=== PATIENT | female | born 1970 | race Hispanic/Latino ===

== ENCOUNTER → 2018-08-26 | Outpatient (CLI) | payer OTHER ==
[~2018-08-26] MED LIST: BUPROPION HCL100 MG PO; LOSARTAN-HCTZ1 EAC2 PO; RANITIDINE HCL300 MG PO
--- NOTE | 2018-08-27 08:32 | Diagnostic Imaging Report ---
#[id number] - USBRELIMRT ULTRASOUND OF THE RIGHT BREAST : 08/26/2018 No prior exams were available for comparison. Color flow and real-time ultrasound were performed on the right breast in the area where the patient has pain, the outer aspect. No cystic or solid mass is identified. IMPRESSION: NEGATIVE There is no sonographic evidence of malignancy. A 1 year screening mammogram is recommended. Gadiel Maloney Jr., D.O. cw/:08/26/2018 13:39:13 Psychological Operations Specialist: [facility], [facility] letter sent: Normal Exam Ultrasound BI-RADS: 1 Negative
== END ==
LOC: US 08:35
PROVIDERS: ATTEND Internal Medicine
DX: N63.10 Unspecified lump in the right breast, unspecified quadrant (principal)

== ENCOUNTER 2018-10-03 12:26 | Emergency (ER) | payer OTHER ==
[~2018-10-03] VITALS: Ht 157.5 cm; Wt 77.1 kg
--- OUTSIDE RECORDS SUMMARY | 2018-10-03 12:29 | XMS REPORT | Clinical Summary ---
Author Author ISMA [facility] Address Unknown Phone Unavailable Care Team Providers Care Filling Hauler Name Role Phone Destin Salvador PCP Allergies Comments Active Allergy Reactions Severity Noted Date Clarithromycin Shortness Of High 10/01/2017 Breath, Itching Medications End Date Status Medication Sig Dispensed Refills Start Date Active ranitidine (ZANTAC) 300 Take 300 mg 0 MG capsule by mouth every evening. Active BISOPROLOL FUMARATE ORAL Take 5 mg by 0 mouth daily. Active vitamin E 400 UNIT Take 400 0 capsule Units by mouth daily. Active iron, carbonyl (FEOSOL) Take 65 mg by 0 45 mg Tab tablet mouth daily. Active lactobacillus rhamnosus, Take 1 0 GG, (CULTURELLE) 10 capsule by billion cell capsule mouth daily. 10/14/2017 acetaminophen-codeine Take 1 tablet 15 tablet 0 (TYLENOL #3) 300-30 mg by mouth 8 per tablet every 4 (four) hours as needed for up to 10 days. Max Daily Amount: 6 tablets 2017 acetaminophen-codeine Take 1 tablet 30 tablet 0 (TYLENOL #4) 300-60 mg by mouth 8 per tablet every 4 (four) hours as needed for Pain for up to 10 days. Max Daily Amount: 6 tablets Active Problems Problem Noted Date Venous insufficiency 10/04/2017 Encounters Care Team Description Date Type Specialty Afshin Laguna MD 10/25/2017 Anesthesia Event Jamir Quick MD REMOVAL,VARICOSE VEIN 10/25/2017 Surgery Jamir Quick MD Venous insufficiency (Primary Dx) 10/25/2017 Hospital Encounter Jamir Quick MD REMOVAL,VARICOSE VEIN 10/04/2017 Surgery Bravo Santana MD 10/04/2017 Anesthesia Event Jamir Quick MD 10/04/2017 Hospital Encounter after 10/02/2017 Social History Date Tobacco Use Types Packs/Day Years Used Never Smoker Smokeless Tobacco: Never Used Alcohol Use Drinks/Week oz/Week Comments Yes rarely Sex Assigned at Date Recorded Not on file Industry Job Start Date Occupation Not on file Not on file Not on file Travel End Travel History Travel Start No recent travel history available. Last Filed Vital Signs Time Taken Vital Sign Reading 10/25/2017 10:25 AM CDT Blood Pressure 155/90 10/25/2017 10:25 AM CDT Pulse 64 10/25/2017 10:25 AM CDT Temperature 36.1 C (97 F) 10/25/2017 10:25 AM CDT Respiratory Rate 16 10/25/2017 10:25 AM CDT Oxygen Saturation 99% - Inhaled Oxygen - Concentration 10/25/2017 6:31 AM CDT Weight 78.6 kg (173 lb 4.8 oz) 10/25/2017 6:31 AM CDT Height 162.6 cm (5' 4") 10/25/2017 6:31 AM CDT Body Mass Index 29.75 Plan of Treatment Not on file Procedures Comments Procedure Name Priority Date/Time Associated Diagnosis ABLATION,ENDOVENOUS 10/25/2017 Venous insufficiency 7:30 AM CDT REMOVAL,VARICOSE VEIN 10/25/2017 Venous insufficiency 7:30 AM CDT POCT-HEMOGLOBIN METER Routine 10/25/2017 7:02 AM CDT HCG, QUANTITATIVE, STAT 10/25/2017 6:59 AM CDT ABLATION,ENDOVENOUS 10/04/2017 Venous insufficiency 9:12 AM CDT REMOVAL,VARICOSE VEIN 10/04/2017 Venous insufficiency 9:12 AM CDT POCT , URINE STAT 10/04/2017 7:00 AM CDT after 10/02/2017 Results * POC-Hemoglobin meter (10/25/2017 7:02 AM CDT) POC-Hemoglobin Meter 11.5 (L)Comment: TESTED AT 12.0 - 15.0 g/dL [facility] [address] [place] [id number] Specimen Blood Performing Organization Address City/State/Zipcode Phone Number [address] [phone] [facility] * hCG, quantitative, (10/25/2017 6:59 AM CDT) hCG Quant <1 0 - 10 mIU/mL [facility] Specimen Blood Narrative Performed At Non- Females: <10 mIU/mL [facility] Females: [facility] Gestation AgeReference Range(mIU/mL) 0.2-1 Week5-50 1-2 [id number] 2-3 Weeks 100-5,000 3-4 Weeks 500-10,000 4-5 Weeks 1,000-50,000 5-6 Weeks10,000-100,000 6-8 Weeks15,000-200,000 2-3 Months 10,000-100,000 Performing Organization Address City/State/Zipcode Phone Number [address] [phone] [facility] * POCT , urine (10/04/2017 7:00 AM CDT) Test Urine, POC Negative Control line present?, Yes POC Background clear?, POC Yes UPT Cassette Lot #, POC [id number] UPT Cassette Expiration 05/01/2019 Date, POC after 10/02/2017 Insurance Payer Benefit Subscriber ID Type Phone Address Plan / Group [employer] xxxxxxxxxx MARK[employer] E EXCHANGE Advance Directives For more information, please contact: [address] [address] Date Inactivated Comments Code Status Date Activated 10/25/2017 12:57 PM Full Code 10/25/2017 6:28 AM This code status was determined by: Patient 10/04/2017 2:01 PM Full Code 10/04/2017 7:03 AM This code status was determined by: Patient
--- OUTSIDE RECORDS SUMMARY | 2018-10-03 12:29 | XMS REPORT ---
Author Author [facility] Address Unknown Phone Unavailable Care Team Providers Care Drop Board Man Name Role Phone ALEIDA FELTON Unavailable Unavailable Mart MURPHY Unavailable Unavailable Problems This patient has no known problems. Allergies, Adverse Reactions, Alerts This patient has no known allergies or adverse reactions. Medications This patient has no known medications. Results Test Description Test Time Test Comments Text Results Atomic Results Result Comments US BREAST LIMITED RIGHT 2018-08-26 11:47:00 [place] [address] Patient Name: GRACIE ACHARYA MR #: [id number] : 1970 Age/Sex: 47/F Req #: [id number] Adm Physician: Ordered by: ELBA MURPHY MD Report #: [id number] Location: US Room/Bed: Procedure: [id number] US/US BREAST LIMITED RIGHT Exam Date: Exam Time: REPORT STATUS: Signed #[id number] - USBRELIMRT ULTRASOUND OF THE RIGHT [facility] : 08/26/2018 No prior exams were available for comparison. Color flow and real-time ultrasound were performed on the right breast in the area where the patient has pain, the outer aspect. No cystic or solid mass is identified. IMPRESSION: NEGATIVE There is no sonographic evidence of malignancy. A 1 year screening mammogram is recommended. Fabio Maloney Jr., D.O. cw/:08/26/2018 13:39:13 Lobby Porter: [facility], [facility] letter sent: Normal Exam Ultrasound BI-RADS: 1 Negative Dictated By: FABIO MALONEY DO 2131 Transcribed By: ANGELA on 08/26/18 1335 COPY TO: ELBA MURPHY MD HCG, QUANTITATIVE, 2017-10-25 07:30:00 GONADOTROPIN, CHORIONIC (HCG) QUANT (BEAKER) (test uvdy=779) < mIU/mL 0-10 Non- Females: <10 mIU/mL Females: Gestation Age Reference Range(mIU/mL) 0.2-1 Week 5-50 1-2 Weeks 50-500 2-3 Weeks 100-5,000 3-4 Weeks 500-10,000 4-5 Weeks 1,000-50,000 5-6 Weeks 10,000-100,000 6-8 Weeks 15,000-200,000 2-3 Months 10,000-100,000 POCT-HEMOGLOBIN METER 2017-10-25 07:04:00* Test Item Value Reference Range Comments POC-HEMOGLOBIN METER (BEAKER) (test plff=6529) 11.5 g/dL 12.0-15.[address] [address] [id number] 11:17:00* Test Item Value Reference Range Comments SODIUM (BEAKER) (test fdwc=227) 140 meq/L 136-145 POTASSIUM (BEAKER) (test tqyp=990) 3.7 meq/L 3.5-5.1 CHLORIDE (BEAKER) (test qtyr=253) 106 meq/L 98-107 CO2 (BEAKER) (test rmhw=217) 27 meq/L 22-29 BUN AND [id number] 11:17:00* Test Item Value Reference Range Comments BLOOD UREA NITROGEN (BEAKER) (test hequ=939) 9 mg/dL 7-21 CREATININE (BEAKER) (test mfok=848) 0.64 mg/dL 0.57-1.25 EGFR (BEAKER) (test ycxk=9467) 99 mL/min/1.73 sq m ESTIMATED GFR IS NOT ACCURATE CREATININE CLEARANCE IN PREDICTING GLOMERULAR FILTRATION RATE. ESTIMATED GFR IS NOT APPLICABLE FOR DIALYSIS PATIENTS. [id number] 10:46:00* Test Item Value Reference Range Comments HEMOGLOBIN (MELE) (test tobn=566) 12.9 GM/DL 11.2-15.7
--- NOTE | 2018-10-03 13:00 | NUR ---
Ottoniel SEWELL at bedside.
[2018-10-03] MEDS ORDERED: KETOROLAC TROMETHAMINE 30 MG/ML VIAL IV STA (13:12)
[2018-10-03] MEDS ORDERED: DEXAMETHASONE SOD PHOS 10 MG/1 ML VIAL IV ONE (13:15)
[2018-10-03] MEDS ORDERED: DIPHENHYDRAMINE HCL INJ 50 MG/ML VIAL IV ONE (13:15)
[2018-10-03] MEDS ORDERED: SODIUM CHLORIDE 0.9% 1000ML 1,000 ML IV SCH (13:15)
[2018-10-03] MEDS ORDERED: METOCLOPRAMIDE HCL 10 MG/2ML VIAL IV ONE (13:15)
[2018-10-03] MEDS ORDERED: ZEBETA10 MG PO (13:27)
[2018-10-03] MEDS ORDERED: RANITIDINE HCL300 M1 PO (13:27)
[2018-10-03] MEDS ORDERED: BISOPROLOL FUMAR5 MG PO (13:29)
--- NOTE | 2018-10-03 13:55 | NUR ---
Room is darkened to help with decreased stimuli, pt is placed into a position of comfort.
--- NOTE | 2018-10-03 15:21 | Diagnostic Imaging Report ---
Examination: CT head without contrast Clinical Indication: Headache. Technique: Transaxial noncontrast images from the skull base through the vertex were obtained. Sagittal and coronal reformatted images were done. Dose modulation, iterative reconstruction, and/or weight based adjustment of the mA/kV was utilized to reduce the radiation dose to as low as reasonably achievable. Comparison: None. Findings: Scalp: No abnormalities. Bones: Intact. No fractures. No blastic or lytic lesions. Brain sulci: Appropriate for patient's age. Ventricles: Normal in size and configuration. No hydrocephalus. Extra-axial space: No abnormalities. Parenchyma: No abnormal densities. No masses, hemorrhage, or acute or chronic cortical based vascular insults. Suprasellar region: No abnormalities. Craniocervical junction: The foramen magnum is patent. No Chiari one malformation. Impression: No intracranial abnormality. Signed by: Dr. Lise Rojas M.D. on 10/03/2018 3:17 PM
[2018-10-03 15:50] VITALS: BP 138/87
== END 2018-10-03 15:56 | disposition home or self-care (01) ==
LOC: ER 12:26
DX: G44.89 Other headache syndrome (principal); G43.909 Migraine, unspecified, not intractable, without status migrainosus; I10 Essential (primary) hypertension; K21.9 Gastro-esophageal reflux disease without esophagitis
CPT/HCPCS: 70450; 99284; J1100; J1200; J1885; J2765; J7030

== ENCOUNTER 2018-10-18 05:25 | Observation (INO) | payer OTHER ==
[~2018-10-18] VITALS: Ht 162.6 cm; Wt 73.0 kg
[~2018-10-18 05:25] MED LIST changes: +BISOPROLOL FUMAR5 MG PO; +RANITIDINE HCL300 M1 PO; +ZEBETA10 MG PO
--- OUTSIDE RECORDS SUMMARY | 2018-10-18 05:28 | XMS REPORT | Clinical Summary ---
Author Author ISMA [facility] Address Unknown Phone Unavailable Care Team Providers Care Extrusion Die Repair Manager Name Role Phone Destin Salvador PCP Allergies [...] capsule by billion cell capsule mouth daily. 2017 acetaminophen-codeine Take 1 tablet 30 tablet [...] Venous insufficiency (Primary Dx) 10/25/2017 Hospital Encounter after 10/17/2017 Social History Date Tobacco Use Types Packs/Day [...] HCG, QUANTITATIVE, STAT 10/25/2017 6:59 AM CDT after 10/17/2017 Results * POC-Hemoglobin meter (10/25/2017 7:02 AM CDT) POC-Hemoglobin Meter 11.5 (L)Comment: TESTED AT 12.0 - 15.0 g/dL [facility] [place] [place] [address] [facility] [address] Specimen Blood Performing Organization Address City/State/Zipcode Phone Number [address] [address] [facility] * hCG, quantitative, (10/25/2017 6:59 AM CDT) hCG Quant <1 0 - 10 mIU/mL [facility] Specimen Blood Narrative Performed At Non- Females: <10 mIU/mL [facility] Females: [facility] Gestation AgeReference Range(mIU/mL) 0.2-1 Week5-50 1-2 [id number] 2-3 Weeks 100-5,000 3-4 Weeks 500-10,000 4-5 Weeks 1,000-50,000 5-6 Weeks10,000-100,000 6-8 Weeks15,000-200,000 2-3 Months 10,000-100,000 Performing Organization Address City/State/Zipcode Phone Number [facility] [address] [place], [place] [phone] [facility] after 10/17/2017 Insurance Payer Benefit Subscriber ID Type Phone Address Plan / Group [employer] xxxxxxxxxx [employer] E EXCHANGE Advance Directives For more information, please contact: [address] [address] Date Inactivated Comments Code Status Date Activated 10/25/2017 12:57 PM Full Code 10/25/2017 6:28 AM This code status was determined by: Patient 10/04/2017 2:01 PM Full Code 10/04/2017 7:03 AM This code status was determined by: Patient
[2018-10-18] MEDS ORDERED: ASPIRIN 81 MG CHEW TAB PO ONE ×2 (05:45→07:00)
[2018-10-18 05:56] LABS: BASOPHILS % 0.6 % (0.0-1.0); EOSINOPHILS # (AUTO) 0.1 (0.0-0.4); EOSINOPHILS % 1.3 % (0.0-6.0); HEMATOCRIT 36.7 % (34.2-44.1); HEMOGLOBIN 12.6 g/dL (12.0-16.0); LYMPHOCYTES # (AUTO) 1.9 (1.0-3.2); LYMPHOCYTES % 29.9 % (18.0-39.1); MEAN CORPUSCULAR HEMOGLOBIN 31.6 pg (28-32); MEAN CORPUSCULAR HGB CONC 34.3 g/dL (31-35); MONOCYTES # (AUTO) 0.4 (0.2-0.8); MONOCYTES % 6.8 % (4.4-11.3); NEUTROPHILS # (AUTO) 3.9 (2.1-6.9); NEUTROPHILS % 61.2 % (38.7-80.0); PLATELET COUNT 222 x10e3/uL (140-360); RED BLOOD COUNT 3.99 x10e6/uL (3.6-5.1); RED CELL DISTRIBUTION WIDTH 11.7 % (11.7-14.4)
--- NOTE | 2018-10-18 06:31 | Diagnostic Imaging Report ---
EXAMINATION: CHEST SINGLE (PORTABLE) COMPARISON: None INDICATION: Chest pain ^chest pain ^[id number] ^0555 ^Y DISCUSSION: Frontal view of the chest obtained at 0601 hours. HEART AND MEDIASTINUM: The cardiomediastinal silhouette is unremarkable. LINES: None. LUNGS: The lungs are well inflated and clear. No pneumonia or pulmonary edema. PLEURA: No pleural effusion or pneumothorax. BONES AND SOFT TISSUES: No focal osseous lesion. The soft tissues are normal. IMPRESSION: No acute cardiopulmonary disease. Signed by: Dr. Jerry Wells MD on 10/18/2018 6:28 AM
[2018-10-18 06:44] LABS: ALANINE AMINOTRANSFERASE 15 IU/L (0-55); ALBUMIN 3.8 g/dL (3.5-5.0); ALBUMIN/GLOBULIN RATIO 1.1 (0.8-2.0); ALKALINE PHOSPHATASE 77 IU/L (40-150); ANION GAP 16.9 mmol/L (8-16); BLOOD UREA NITROGEN 11 mg/dL (7-26); BUN/CREATININE RATIO 15 (6-25); CALCIUM 9.9 mg/dL (8.4-10.2); CARBON DIOXIDE 24 mmol/L (22-29); CHLORIDE 109 mmol/L (98-107); CREATINE KINASE 51 IU/L (29-168); CREATININE, SERUM 0.75 mg/dL (0.57-1.11); EST GLOMERULAR FILTRATION RATE > 60 ML/MIN (60-); GLUCOSE 107 mg/dL (74-118); POTASSIUM 3.9 mmol/L (3.5-5.1); SODIUM 146 mmol/L (136-145)
[2018-10-18] MEDS ORDERED: ONDANSETRON HCL INJ 2MG/ML 2ML 2 MG/ML VIAL IV PRN (07:00)
[2018-10-18] MEDS ORDERED: SODIUM CHLORIDE FLUSH 10 ML SYR INJ PRN (07:00)
[2018-10-18] MEDS ORDERED: NITROGLYCERIN 0.4 MG SUBL SL PRN (07:00)
--- NOTE | 2018-10-18 07:03 | NUR ---
ASSUMED CARE AT THIS TIME. PATIENT LAYING IN BED WITH EYES CLOSED,EASILY ARROUSABLE TO VERBAL STIMULI. RESP EVEN AND UNLABORED. SKIN WARM AND DRY. NO SIGNS OF ACUTE DISTRESS NOTED AT THIS TIME. EDUCATED PATIENT AND FAMILY ON THE CURRENT PLAN OF CARE,VERBALIZED UNDERSTANDING. DENIES ANY C/O AT THIS TIME.
--- NOTE | 2018-10-18 07:03 | NUR ---
REPORT GIVEN TO KRISHNA MORGAN DAY SHIFT NURSE.
--- OUTSIDE RECORDS SUMMARY | 2018-10-18 07:07 | XMS REPORT | Clinical Summary ---
Author Author ISMA [facility] Address Unknown Phone Unavailable Care Team Providers Care Net Developer Consultant Name Role Phone Destin Salvador PCP Allergies [...] (L)Comment: TESTED AT 12.0 - 15.0 g/dL [facility] [address] [facility] [address] Specimen Blood Performing Organization Address City/State/Zipcode Phone Number [address] [address] [facility] * hCG, quantitative, (10/25/2017 6:59 AM CDT) hCG Quant <1 0 - 10 mIU/mL [facility] Specimen Blood Narrative Performed At Non- Females: <10 mIU/mL [facility] Females: [facility] Gestation AgeReference Range(mIU/mL) 0.2-1 Week5-50 1-2 [id number] 2-3 Weeks 100-5,000 3-4 Weeks 500-10,000 4-5 Weeks 1,000-50,000 5-6 Weeks10,000-100,000 6-8 Weeks15,000-200,000 2-3 Months 10,000-100,000 Performing Organization Address City/State/Zipcode Phone Number [facility] [address] [place], [place] [phone] [facility] after 10/17/2017 Insurance Payer Benefit Subscriber ID Type Phone Address Plan / Group [employer] xxxxxxxxxx [employer] EXCHANGE Advance Directives For more information, please contact: [address] [address] Date Inactivated Comments Code Status Date Activated 10/25/2017 12:57 PM Full Code 10/25/2017 6:28 AM This code status was determined by: Patient 10/04/2017 2:01 PM Full Code 10/04/2017 7:03 AM This code status was determined by: Patient
--- NOTE | 2018-10-18 08:10 | NUR ---
ULTRASOUND AT BEDSIDE FOR ECHO
[2018-10-18] MEDS: FAMOTIDINE 20 MG/2 ML VIAL IV SCH ×2 (08:19→19:12)
[2018-10-18] MEDS ORDERED: BUTALBIT-ACETA1 EACH PO (08:57)
[2018-10-18] MEDS ORDERED: MELOXICAM7.5 MG PO (08:57)
[2018-10-18] MEDS ORDERED: ASPIRIN 81 MG ENTERIC COATED PO SCH (09:00)
--- NOTE | 2018-10-18 10:16 | NUR ---
TELEMETRY BOX APPLIED. NO SIGNS OF ACUTE DISTRESS NOTED AT THIS TIME.
[2018-10-18 10:45] VITALS: BP 154/84
[2018-10-18 11:31] VITALS: BP 154/84
[2018-10-18 11:38] VITALS: BP 154/84
--- NOTE | 2018-10-18 12:18 | NUR ---
Dictated Dictation system cut off at 'plan' section No dictation ID available
--- NOTE | 2018-10-18 16:36 | Consultation ---
DATE OF CONSULTATION: 10/18/2018 Cardiology consultation. REQUESTING PHYSICIAN: Edward Anaya MD. REASON FOR CONSULTATION: Chest pain. HISTORY OF PRESENT ILLNESS: This is a 47-year-old woman with history of hypertension, hyperlipidemia, and hypothyroidism, who presents with complaints of chest pain. She describes the pain as a pulling sensation 8/10 in severity. She stated the pain occurred two times each lasting seconds and were followed by heaviness in the left arm. She denies any shortness of breath or nausea or diaphoresis associated with the pain. REVIEW OF SYSTEMS: Negative except as per HPI. PAST MEDICAL HISTORY: 1. Hypertension. 2. Hyperlipidemia. 3. Hypothyroidism. PAST SURGICAL HISTORY: 1. section. 2. Cholecystectomy. 3. Hysterectomy. 4. Vein procedure. ALLERGIES: PLEASE SEE EMR. MEDICATIONS: Please see medication list. SOCIAL HISTORY: Denies tobacco, alcohol or illicit drugs. FAMILY HISTORY: Denies family history of heart disease. PHYSICAL EXAMINATION: VITAL SIGNS: Temperature 97.6 degrees, pulse 56, respiratory rate 16, blood pressure 145/85, oxygen saturation 100%. GENERAL: Awake, alert, in no acute distress. Well-developed, well-nourished woman. HEENT: Normocephalic, atraumatic. Pupils equal. No scleral icterus. NECK: Supple. No thyromegaly or cervical lymphadenopathy. No carotid bruits. LUNGS: Clear to auscultation bilaterally. No wheezes or crackles. CARDIOVASCULAR: Normal rate. Regular rhythm. No murmur. Normal S1, S2. ABDOMEN: Soft, nontender. EXTREMITIES: No edema. NEUROLOGIC: Nonfocal exam. LABORATORY DATA: WBC 6.29, hemoglobin 12.6, hematocrit 36.7, platelets 222. Sodium 146, potassium 3.9, chloride 109, CO2 of 24, BUN 11, creatinine 0.75. Troponin 0.003. Chest x-ray; no acute cardiopulmonary disease. Chest x-ray; sinus bradycardia, otherwise normal ECG. IMPRESSION: 1. Chest pain. 2. Hypertension. 3. Hyperlipidemia. 4. Hypothyroidism. RECOMMENDATIONS: Trend cardiac enzymes to rule out myocardial infarction. Echocardiogram has been done. We will review the images once available. Obtain fasting lipid panel. Given risk factors, we will proceed with nuclear stress test to evaluate for ischemia, resume home cardiac medications specifically for sotalol for patient's hypertension. Further recommendations pending test results. Thank you for this consult. We will continue to follow. MD DEIRDRE Gary/LOIL /[id number]
[2018-10-18 16:50] LABS: CREATINE KINASE MB 0.4 ng/mL (0-5.0)
[2018-10-18 19:29] VITALS: BP 143/77
[2018-10-18 19:43] VITALS: BP 143/77
--- NOTE | 2018-10-21 10:34 | NUR ---
DISCHARGE SUMMARY [id number]
--- NOTE | 2018-10-21 13:39 | Myoview Stress Test ---
DATE OF STUDY: 10/18/2018 09:40:00 Stress Test - Treadmill ONLY ACCESSION NUMBER: [id number] PROCEDURE TITLE: Rest/stress single isotope SPECT imaging with exercise stress and gated SPECT imaging. INDICATION: Chest pain. PROCEDURE: The patient performed treadmill exercise using a Huan protocol, exercising for 9 minutes and 33 seconds to stage IV and completing estimated workload of 10.1 metabolic equivalents (METs). The test was terminated due to target heart rate achieved. The heart rate was 72 beats per minute at rest, increased to 152 beats per minute at peak exercise, which is 89% of the maximum predicted heart rate. The rest blood pressure was 128/88 and increased to 162/103, which is a normal response. The resting electrocardiogram demonstrated normal sinus rhythm. There is no ST-segment changes suggestive of myocardial ischemia. Myocardial perfusion imaging was performed at rest following the injection of 11 mCi of tetrofosmin. At peak exercise, the patient was injected with 30 mCi of tetrofosmin. Exercise was continued for 1 minute. Gated post-stress tomographic imaging was performed. FINDINGS: The overall quality of the study is fair. Left ventricle is normal size on the rest and stress studies. SPECT images demonstrate homogeneous tracer distribution throughout the myocardium. Gated SPECT imaging reveals normal myocardial thickening and wall motion. The left ventricular ejection fraction was calculated to be 54%. IMPRESSION: Myocardial perfusion imaging is normal. Overall, left ventricular systolic function was normal without regional wall motion abnormalities. Manuela Emerson MD ABS/MODL /[id number]
--- NOTE | 2018-10-21 14:14 | History and Physical ---
PRIMARY CARE DOCTOR: Destin Salvador MD CHIEF COMPLAINT: Chest pain. HISTORY OF PRESENT ILLNESS: Ms. Alberts is a pleasant 47-year-old female with chest pain history. It began 1 year ago. She has a different kind of GERD pain that is mild in different parts of her body. This is left-sided, pressure. Radiates a little bit to the left upper extremity. Episodes occur transiently, but originally were mild in intensity. They are starting to get more strong and bothersome. Last week, she presented to her primary care doctor for evaluation, but this time she came to the hospital given worsening. EKG reportedly has no acute process, but I do not see the tracing in the chart right now. PAST MEDICAL HISTORY: Hyperlipidemia, hypertension, migraines, GERD, hypothyroid state, , cholecystectomy, hysterectomy. MEDICATIONS: Medication list reviewed per electronic record. ALLERGIES: CLARITHROMYCIN. SOCIAL HISTORY: No smoking. No drinking. No drugs. FAMILY HISTORY: Noncontributory to this. REVIEW OF SYSTEMS: GENERAL: No weight changes. OPHTHALMOLOGIC: No double vision. ENT: No mouth ulcers. ENDOCRINE: Thyroid reportedly recently in control. PULMONARY: No asthma. CARDIAC: No heart attacks in the past. GI: No constipation. : No bloody urine. NEUROLOGIC: No seizures. DERMATOLOGIC: No rashes. PSYCHIATRIC: No depression. OBJECTIVE: VITAL SIGNS: Afebrile, vital signs noted per the chart record. GENERAL: In no acute distress, alert and calm. HEENT: Normocephalic, atraumatic. NECK: Supple. Throat midline. LUNGS: Bilateral air entry, clear. CARDIOVASCULAR: S1, S2. No murmurs, rubs, or gallops. ABDOMEN: Soft, nontender. EXTREMITIES: No clubbing. No cyanosis. There is no edema. INTEGUMENT: No rash. No purpura. LABORATORY DATA: A 3.9 potassium, 0.75 creatinine. 6.2 white count, 37 hematocrit, 222 platelets. Chest x-ray, clear lungs. IMPRESSION AND PLAN: 1. Worsening chest pains, not otherwise specified. Treat for acute coronary syndrome. 2. Hypertension. 3. Hyperlipidemia. 4. Reported gastroesophageal reflux disease. 5. Hypothyroid state. MD LIOR Joseph/LOIL /[id number]
--- NOTE | 2018-10-21 17:01 | Discharge Summary ---
PRIMARY CARE DOCTOR: Destin Salvador MD PRIMARY DIAGNOSIS: Chest pain, possible acute coronary syndrome. SECONDARY DIAGNOSES: 1. Chest pain, less likely acute coronary syndrome. 2. Hypertension. 3. Hyperlipidemia. 4. Hypothyroidism. 5. Gastroesophageal reflux disease. HOSPITAL COURSE: The patient presented to emergency room after having chest pains, which have been worsening over the last two months. In the emergency room, initial cardiac enzyme screening was negative. EKG was unremarkable for ischemia. However, due to certain risks factors including first-time presentation, she was admitted. She was ruled out for a myocardial infarction as inpatient in observation. The patient was taken for stress test by Dr. Emerson and stress test result was unremarkable. The patient also had echocardiogram done showing 55%-60% LVEF without any gross structural abnormalities that were significant. Thereafter, the patient was allowed to discharge for outpatient followup. ACTIVITY: As tolerated. DIET: Cardiac, low-salt diet. MEDICATIONS ON DISCHARGE: Please see discharge medication record for details. FOLLOWUP: With Dr. Salvador in 1-[address] Emerson in 3-4 weeks. Greater than 30 minutes in coordinating care, multiple evaluation on this day for discharge. MD LIOR Joseph/CAESAR /[id number]
== END 2018-10-18 20:44 | disposition home or self-care (01) ==
LOC: ER 05:25 → ERHOLD 07:05 → IMCU 10:08
PROVIDERS: ADMIT Internal Medicine Critical Care Medicine; ATTEND Internal Medicine Critical Care Medicine
DX: R07.89 Other chest pain (principal); I10 Essential (primary) hypertension; E03.9 Hypothyroidism, unspecified; K21.9 Gastro-esophageal reflux disease without esophagitis; K29.70 Gastritis, unspecified, without bleeding; E78.5 Hyperlipidemia, unspecified; G43.909 Migraine, unspecified, not intractable, without status migrainosus; Z82.49 Family history of ischemic heart disease and other diseases of the circulatory system; Z88.8 Allergy status to other drugs, medicaments and biological substances
CPT/HCPCS: 36415; 71045; 78452; 80053; 80061; 82550; 82553; 84484; 84702; 85025; 93005; 93017; 93306; 99284; A9502; G0378

== ENCOUNTER 2019-08-25 07:54 | Emergency (ER) | payer OTHER ==
[~2019-08-25] VITALS: Ht 162.6 cm; Wt 77.6 kg
[~2019-08-25 07:54] MED LIST changes: +BUTALBIT-ACETA1 EACH PO; +MELOXICAM7.5 MG PO
[2019-08-25] MEDS ORDERED: TOPAMAX25 MG PO (08:00)
[2019-08-25] MEDS ORDERED: KETOROLAC TROMETHAMINE 60 MG/2 ML VIAL IM ONE (08:00)
[2019-08-25] MEDS ORDERED: DIAZEPAM 5 MG TAB PO ONE (08:00)
--- NOTE | 2019-08-25 08:22 | NUR ---
Patient medicated for pain. Patient currently in CT scan.
--- NOTE | 2019-08-25 09:05 | Diagnostic Imaging Report ---
CT BRAIN WO HISTORY: Headache COMPARISON: Head CT 10/03/2018 TECHNIQUE: Noncontrast axial scans were obtained from skull base to the vertex. Coronal and sagittal reconstructions obtained from the axial data. One or more of the following dose reduction techniques were used: Automated exposure control, adjustment of the mA and/or kV according to patient size, and/or utilization of iterative reconstruction technique. DISCUSSION: Scalp/Skull: Unremarkable. Brain sulci: Appropriate for patient's age. Ventricles: Normal in size and configuration. No hydrocephalus. Extra-axial spaces: No masses or fluid collections. Parenchyma: No abnormal densities. No mass, hemorrhage, or large vascular territory acute infarct. Dural sinuses: No abnormal densities. Sellar/Suprasellar region: Intact. Skull base: Intact. Incidental findings: None. IMPRESSION: No intracranial abnormalities. Signed by: Dr. Giuseppe Sifuentes M.D. on 08/25/2019 9:02 AM
[2019-08-25 09:28] VITALS: BP 135/92
== END 2019-08-25 09:46 | disposition home or self-care (01) ==
LOC: ER 07:54
DX: G44.211 Episodic tension-type headache, intractable (principal)
CPT/HCPCS: 70450; 99283; J1885

== ENCOUNTER 2019-12-20 08:46 | Emergency (ER) | payer OTHER ==
[~2019-12-20] VITALS: Ht 162.6 cm; Wt 77.6 kg
[~2019-12-20 08:46] MED LIST changes: +TOPAMAX25 MG PO
[2019-12-20] MEDS ORDERED: FAMOTIDINE 20 MG/2 ML VIAL IV STA (08:56)
[2019-12-20] MEDS ORDERED: PANTOPRAZOLE 40 MG 10ML VIAL IV STA (08:56)
[2019-12-20 09:10] LABS: BASOPHILS % 0.6 % (0.0-1.0); EOSINOPHILS # (AUTO) 0.1 (0.0-0.4); EOSINOPHILS % 1.1 % (0.0-6.0); HEMATOCRIT 41.3 % (34.2-44.1); HEMOGLOBIN 14.1 g/dL (12.0-16.0); LYMPHOCYTES # (AUTO) 1.7 (1.0-3.2); LYMPHOCYTES % 26.8 % (18.0-39.1); MEAN CORPUSCULAR HEMOGLOBIN 30.7 pg (28-32); MEAN CORPUSCULAR HGB CONC 34.1 g/dL (31-35); MEAN CORPUSCULAR VOLUME 89.8 fL (81-99); MONOCYTES # (AUTO) 0.5 (0.2-0.8); MONOCYTES % 8.1 % (4.4-11.3); NEUTROPHILS % 63.1 % (38.7-80.0); PLATELET COUNT 226 x10e3/uL (140-360); RED CELL DISTRIBUTION WIDTH 11.7 % (11.7-14.4)
--- NOTE | 2019-12-20 09:11 | Emergency Department Note ---
History of Present Illnes History of Present Illness Chief Complaint: Abdominal Complaints History of Present Illness This is a 49 year old female arrives to the ED epigastric abdominal pain. Patient states she's had this pain on and off for several months. Patient states pain is localized epigastric region worse after eating. Patient states she was diagnosed with gastritis and is taking Bentyl with minimal relief. Patient had a recent ultrasound that was unremarkable. Patient is looking to get find out if she has an ulcer. Historian: Patient Arrival Mode: Car National [employer] Officer Required: No Onset (how long ago): month(s) Onset quality: gradual Duration (how long): month(s) Progression: waxing and waning Chronicity: recurrent Exacerbating factors: eating Treatments prior to arrival: none Past Medical/Family History Physician Review I have reviewed the patient's past medical and family history. Any updates have been documented here. Past Medical History Recent Fever: No Clinical Suspicion of Infectio: No New/Unexplained Change in Ment: No Past Medical History: Hypertension, Migraines, GERD Other Medical History: gall stones Past Surgical History: Tubal Ligation, Social History Smoking Cessation: Never Smoker Counseling Performed: No Family History Family history of heart diseas: No Other Last Tetanus: OOD Review of Systems Review of Systems Constitutional: Reports no symptoms EENTM: Reports no symptoms Cardiovascular: Reports no symptoms Respiratory: Reports no symptoms Gastrointestinal: Reports as per HPI, Reports abdominal pain, Reports nausea; Denies constipation, Denies diarrhea, Denies vomiting Genitourinary: Reports no symptoms Musculoskeletal: Reports no symptoms Integumentary: Reports no symptoms Neurological: Reports no symptoms Psychological: Reports no symptoms Endocrine: Reports no symptoms Hematological/Lymphatic: Reports no symptoms Physical Exam Related Data Allergies: Coded Allergies: clarithromycin (Verified Allergy, Mild, ITCHING, 12/20/19) Triage Vital Signs Vital Signs Date Time Temp Pulse Resp B/P (MAP) Pulse Ox O2 Delivery O2 Flow Rate FiO2 12/20/19 08:48 96.6 61 18 163/104 99 Vital signs reviewed: Yes Physical Exam CONSTITUTIONAL Constitutional: Present well-developed, Present obese HENT HENT: Present normocephalic, Present atraumatic, Present oropharynx clear/moist, Present nose normal HENT L/R: Present left ext ear normal, Present right ext ear normal EYES Eyes: Reports PERRL, Reports conjunctivae normal NECK Neck: Present ROM normal PULMONARY Pulmonary: Present effort normal, Present breath sounds normal CARDIOVASCULAR Cardiovascular: Present regular rhythm, Present heart sounds normal, Present capillary refill normal, Present normal rate GASTROINTESTINAL Abdominal: Present soft, Present bowel sounds normal, Present tender (abdomen relatively soft, mild epigastric tenderness noted) GENITOURINARY Genitourinary: Present exam deferred SKIN Skin: Present warm, Present dry MUSCULOSKELETAL Musculoskeletal: Present ROM normal NEUROLOGICAL Neurological: Present alert, Present oriented x 3, Present no gross motor or sensory deficits PSYCHOLOGICAL Psychological: Present mood/affect normal, Present judgement normal Results Laboratory Lab results reviewed: Yes Laboratory comments Laboratory Tests Test 12/20/19 08:55 White Blood Count 6.30 x10e3/uL (4.8-10.8) Red Blood Count 4.60 x10e6/uL (3.6-5.1) Hemoglobin 14.1 g/dL (12.0-16.0) Hematocrit 41.3 % (34.2-44.1) Mean Corpuscular Volume 89.8 fL (81-99) Mean Corpuscular Hemoglobin 30.7 pg (28-32) Mean Corpuscular Hemoglobin Concent 34.1 g/dL (31-35) Red Cell Distribution Width 11.7 % (11.7-14.4) Platelet Count 226 x10e3/uL (140-360) Neutrophils (%) (Auto) 63.1 % (38.7-80.0) Lymphocytes (%) (Auto) 26.8 % (18.0-39.1) Monocytes (%) (Auto) 8.1 % (4.4-11.3) Eosinophils (%) (Auto) 1.1 % (0.0-6.0) Basophils (%) (Auto) 0.6 % (0.0-1.0) Neutrophils # (Auto) 4.0 (2.1-6.9) Lymphocytes # (Auto) 1.7 (1.0-3.2) Monocytes # (Auto) 0.5 (0.2-0.8) Eosinophils # (Auto) 0.1 (0.0-0.4) Basophils # (Auto) 0.0 (0.0-0.1) Absolute Immature Granulocyte (auto 0.02 x10e3/uL (0-0.1) Urine Color Yellow (YELLOW) Urine Clarity Sl cloudy (CLEAR) Urine pH 6 (5 - 7) Urine Specific [place] 1.025 (1.010-1.025) Urine Protein Trace (NEGATIVE) Urine Glucose (UA) Negative (NEGATIVE) Urine Ketones Negative (NEGATIVE) Urine Blood Trace (NEGATIVE) Urine Nitrite Negative (NEGATIVE) Urine Bilirubin Negative (NEGATIVE) Urine Urobilinogen 0.2 mg/dL (0.2 - 1) Urine Leukocyte Esterase Negative (NEGATIVE) Urine RBC 6-10 /HPF (0-5) Urine WBC 6-10 /HPF (0-5) Urine Epithelial Cells Many /LPF (NONE) Urine Bacteria Many /HPF (NONE) Sodium Level 143 mmol/L (136-145) Potassium Level 3.7 mmol/L (3.5-5.1) Chloride Level 108 mmol/L (98-107) Carbon Dioxide Level 28 mmol/L (22-29) Anion Gap 10.7 mmol/L (8-16) Blood Urea Nitrogen 10 mg/dL (7-26) Creatinine 0.76 mg/dL (0.57-1.11) Estimat Glomerular Filtration Rate > 60 ML/MIN (60-) BUN/Creatinine Ratio 13 (6-25) Glucose Level 108 mg/dL (74-118) Calcium Level 10.2 mg/dL (8.4-10.2) Total Bilirubin 0.9 mg/dL (0.2-1.2) Aspartate Amino Transf (AST/SGOT) 18 IU/L (5-34) Alanine Aminotransferase (ALT/SGPT) 20 IU/L (0-55) Alkaline Phosphatase 104 IU/L (40-150) Creatine Kinase 85 IU/L (29-168) Creatine Kinase MB 0.40 ng/mL (0-5.0) Troponin I 0.002 ng/mL (0-0.300) Total Protein 7.6 g/dL (6.5-8.1) Albumin 4.3 g/dL (3.5-5.0) Globulin 3.3 g/dL (2.3-3.5) Albumin/Globulin Ratio 1.3 (0.8-2.0) Lipase 20 U/L (8-78) Imaging Imaging results reviewed: Yes Assessment & Plan Medical Decision Making MDM 49-year-old female arrived to the ED with complaints of epigastric abdominal pain, known history of gastritis, arrives with ultrasound and lab work done last week which was unremarkable. Patient was informed she has gastritis and her complaints of reflux and epigastric abdominal pain consistent with that. Patient given Protonix and H2-nicki in the emergency department with improvement of pain/symptoms noted. Patient admits to having pork tacos prior to arrival, spoke to the patient at length about changing her diet and avoiding fatty greasy food until she gets her gastritis under control. Patient for she will benefit from an outpatient endoscopy to rule out H. pylori as well as to ensure no ulcers. Outpatient GI referral given Dr. Baker contacted as a courtesy to the patient to follow up on Sunday. Assessment & Plan Final Impression: (1) GERD with esophagitis (2) Gastritis Depart Disposition: HOME, SELF-CARE Last Vital Signs Date Time Temp Pulse Resp B/P (MAP) Pulse Ox O2 Delivery O2 Flow Rate FiO2 12/20/19 08:48 96.6 61 18 163/104 99 Home Meds Active Scripts Famotidine (FAMOTIDINE) 20 Mg Tab, 20 MG PO DAILY, #30 TAB Prov:CHRIS THOMAS DO 12/20/19 Omeprazole (OMEPRAZOLE) 40 Mg Capsule., 40 MG PO DAILY, #30 Prov:CHRIS THOMAS DO 12/20/19 Reported Medications Topiramate (TOPAMAX) 25 Mg Tablet, 50 MG PO DAILY 08/25/19 Butalb/Acetaminophen/Caffeine ([id number] CP) 1 Each Capsule, 1-2 TAB PO PRN PRN for HEADACHE 10/18/18 Meloxicam (MELOXICAM) 7.5 Mg Tablet, 7.5 MG PO DAILY, #30 TAB 10/18/18 Bisoprolol Fumarate (BISOPROLOL FUMARATE) 5 Mg Tablet, 5 MG PO DAILY 10/03/18 Ranitidine Hcl (RANITIDINE HCL) 300 Mg Capsule, 300 MG PO HS 10/03/18 Medications in the ED Famotidine 20 mg NOW STAT IV ; Start 12/20/19 at 08:56; Stop 12/20/19 at 08:59; Status DC Pantoprazole Sodium 40 mg NOW STAT IV ; Start 12/20/19 at 08:56; Stop 12/20/19 at 08:59; Status DC CHRIS THOMAS, Dec 20, 2019 09:11
[2019-12-20 09:14] LABS: BILIRUBIN,URINE NEGATIVE (NEGATIVE); CLARITY,URINE SL CLOUDY (CLEAR); COLOR,URINE YELLOW (YELLOW); KETONES,URINE NEGATIVE (NEGATIVE); LEUKOCYTE ESTERASE ,URINE NEGATIVE (NEGATIVE); NITRITE,URINE NEGATIVE (NEGATIVE); PROTEIN,URINE DIPSTICK TRACE (NEGATIVE); URINE UROBILINOGEN 0.2 mg/dL (0.2 - 1)
[2019-12-20] MEDS ORDERED: OMEPRAZOLE40 MG PO (09:24)
[2019-12-20] MEDS ORDERED: FAMOTIDINE20 MG PO (09:24)
[2019-12-20 09:26] LABS: BACTERIA,URINE MANY /HPF; EPITHELIAL CELLS,URINE MANY /LPF
[2019-12-20 09:30] LABS: ALANINE AMINOTRANSFERASE 20 IU/L (0-55); ALBUMIN 4.3 g/dL (3.5-5.0); ALBUMIN/GLOBULIN RATIO 1.3 (0.8-2.0); ALKALINE PHOSPHATASE 104 IU/L (40-150); ANION GAP 10.7 mmol/L (8-16); BLOOD UREA NITROGEN 10 mg/dL (7-26); BUN/CREATININE RATIO 13 (6-25); CALCIUM 10.2 mg/dL (8.4-10.2); CARBON DIOXIDE 28 mmol/L (22-29); CHLORIDE 108 mmol/L (98-107); CREATINE KINASE 85 IU/L (29-168); CREATININE, SERUM 0.76 mg/dL (0.57-1.11); EST GLOMERULAR FILTRATION RATE > 60 ML/MIN (60-); GLUCOSE 108 mg/dL (74-118); POTASSIUM 3.7 mmol/L (3.5-5.1); SODIUM 143 mmol/L (136-145)
[2019-12-20] MEDS ORDERED: SODIUM CHLORIDE 0.9% INJ 50 ML BAG ONE (10:10)
[2019-12-20] MEDS ORDERED: IOPAMIDOL 370 MG/ML 200 ML INFUS..BTL INJ ONE (10:10)
--- NOTE | 2019-12-20 10:44 | Diagnostic Imaging Report ---
EXAM: CT Abdomen and Pelvis WITH contrast INDICATION: ^Y ^abd pain COMPARISON: None. TECHNIQUE: Abdomen and pelvis were scanned utilizing a multidetector helical scanner from the lung base to the pubic symphysis after administration of IV contrast. Coronal and sagittal reformations were obtained. Routine protocol was performed. Scan was performed when during portal venous phase. IV CONTRAST: 100 mL of Isovue 370 ORAL CONTRAST: Water COMPLICATIONS: None RADIATION DOSE: Total DLP: 451 mGy*cm Estimated effective dose: (DLP x 0.015 x size factor) mSv CTDIvol has been reviewed. It is below the limits set by the Radiation Protocol Committee (RPC). Dose modulation, iterative reconstruction, and/or weight based adjustment of the mA/kV was utilized to reduce the radiation dose to as low as reasonably achievable. FINDINGS: LINES and TUBES: None. LOWER THORAX: Unremarkable HEPATOBILIARY: No focal hepatic lesions. Prominent biliary ductal system likely due to cholecystectomy. GALLBLADDER: Surgically absent. SPLEEN: No splenomegaly. PANCREAS: No focal masses or ductal dilatation. ADRENALS: No adrenal nodules KIDNEYS/URETERS: Kidneys enhance symmetrically. No hydronephrosis. No cystic or solid mass lesions. No stones. GI TRACT: No abnormal distention, wall thickening, or evidence of bowel obstruction. Scattered colonic diverticulosis. Appendix is normal. PELVIC ORGANS/BLADDER: Prominent uterus with nonspecific heterogeneous enhancement of the uterine myometrium. LYMPH NODES: No lymphadenopathy. VESSELS: Unremarkable. PERITONEUM / RETROPERITONEUM: No free air or fluid. BONES: Unremarkable. SOFT TISSUES: Unremarkable. IMPRESSION: No acute abdominal or pelvic abnormality. Signed by: Alejandro Porter MD on 12/20/2019 10:41 AM
== END 2019-12-20 11:39 | disposition home or self-care (01) ==
LOC: ER 08:46
DX: R10.13 Epigastric pain (principal); K29.70 Gastritis, unspecified, without bleeding; K21.0 Gastro-esophageal reflux disease with esophagitis; I10 Essential (primary) hypertension
CPT/HCPCS: 36415; 74177; 80053; 81001; 82550; 82553; 83690; 84484; 85025; 99284; Q9967

== ENCOUNTER → 2022-09-25 | Outpatient (CLI) | payer OTHER ==
[~2022-09-25] MED LIST changes: +FAMOTIDINE20 MG PO; +OMEPRAZOLE40 MG PO
== END ==
LOC: RAD 14:57
PROVIDERS: ATTEND Internal Medicine Critical Care Medicine
DX: R06.00 Dyspnea, unspecified (principal)
CPT/HCPCS: 71046